=== PATIENT | male | born 1980 | race Caucasian/White ===

== ENCOUNTER 2017-04-07 21:07 | Emergency (ER) | payer BC ==
--- NOTE | 2017-04-07 21:21 | EDM.PDOC ---
ED HPI GENERAL MEDICAL PROBLEM - General Chief Complaint: Chest Pain Stated Complaint: CHEST PAIN Time Seen by Provider: 04/07/17 21:15 - History of Present Illness INITIAL COMMENTS - FREE TEXT/NARRATIVE: HISTORY AND PHYSICAL: History of present illness: Patient 36-year-old male presents with concerns chest pain 13 days his been seen as an outpatient with negative diagnostic. He denies associated shortness breath palpitations nausea vomiting or other complaints he has seen a chiropractor also pelvis. Review of systems: As per history of present illness and below otherwise all systems reviewed and negative. Past medical history: As per history of present illness and as reviewed below otherwise noncontributory. Surgical history: As per history of present illness and as reviewed below otherwise noncontributory. Social history: No reported history of drug or alcohol abuse. Family history: As per history of present illness and as reviewed below otherwise noncontributory. Physical exam: HEENT: Atraumatic, normocephalic, pupils reactive, negative for conjunctival pallor or scleral icterus, mucous membranes moist, throat clear, neck supple, nontender, trachea midline. Lungs: Clear to auscultation, breath sounds equal bilaterally, chest nontender. Heart: S1S2, regular, negative for clicks, rubs, or JVD. Abdomen: Soft, nondistended, nontender. Negative for masses or hepatosplenomegaly. Negative for costovertebral tenderness. Pelvis: Stable nontender. Genitourinary: Deferred. Rectal: Deferred. Extremities: Atraumatic, negative for cords or calf pain. Neurovascular unremarkable. Neuro: Awake, alert, oriented. Cranial nerves II through XII unremarkable. Cerebellum unremarkable. Motor and sensory unremarkable throughout. Exam nonfocal. Diagnostics: EKG chest x-ray CBC CMP PT/INR troponin Therapeutics: None Impression: 1 atypical chest pain Definitive disposition and diagnosis as appropriate pending reevaluation and review of above. chest pain Pain Score (Numeric/FACES): 6 - Related Data Allergies Allergy/AdvReac Type Severity Reaction Status Date / Time No Known Allergies Allergy Verified 04/07/17 21:12 Home Meds: Home Meds . [No Known Home Meds] 04/07/17 [History] ED ROS GENERAL - Review of Systems Review Of Systems: ROS reveals no pertinent complaints other than HPI. ED EXAM, GENERAL - Physical Exam Exam: See Below (See dictation) Course - Vital Signs Last Recorded V/S: Last Vital Signs Temp 36.5 C 04/07/17 21:12 Pulse 72 04/07/17 21:12 Resp 18 04/07/17 21:12 BP 125/86 04/07/17 21:12 Pulse Ox 98 04/07/17 21:12 - Orders/Labs/Meds Orders: Active Orders 24 hr Category Date Time Status EKG Documentation Completion [RC] STAT Care 04/07/17 21:12 Active Chest 1V Frontal [CR] Stat Exams 04/07/17 21:12 Ordered CBC WITH AUTO DIFF [HEME] Stat Lab 04/07/17 21:12 Ordered COMPREHENSIVE METABOLIC PN,CMP [CHEM] Stat Lab 04/07/17 21:12 Ordered INR,PT,PROTHROMBIN TIME [COAG] Stat Lab 04/07/17 21:12 Ordered TROPONIN I [CHEM] Stat Lab 04/07/17 21:12 Ordered UA W/MICROSCOPIC [URIN] Stat Lab 04/07/17 21:12 Ordered Departure - Departure Time of Disposition: 21:21 Disposition: Home, Self-Care 01 Condition: Good Clinical Impression: Atypical chest pain - Discharge Information Referrals: PCP,None [Primary Care Provider] - Additional Instructions: The following information is given to patients seen in the emergency department who are being discharged to home. This information is to outline your options for follow-up care. We provide all patients seen in our emergency department with a follow-up referral. The need for follow-up, as well as the timing and circumstances, are variable depending upon the specifics of your emergency department visit. If you don't have a primary care physician on staff, we will provide you with a referral. We always advise you to contact your personal physician following an emergency department visit to inform them of the circumstance of the visit and for follow-up with them and/or the need for any referrals to a consulting specialist. The emergency department will also refer you to a specialist when appropriate. This referral assures that you have the opportunity for followup care with a specialist. All of these measure are taken in an effort to provide you with optimal care, which includes your followup. Under all circumstances we always encourage you to contact your private physician who remains a resource for coordinating your care. When calling for followup care, please make the office aware that this follow-up is from your recent emergency room visit. If for any reason you are refused follow-up, please contact the [facility] emergency department at and asked to speak to the emergency department charge nurse. [facility] [address] [place] [id number] Follow-up primary medical doctor and/or primary care clinic above call to schedule routine appointment return as needed as discussed - My Orders Last 24 Hours: My Active Orders 04/07/17 21:12 EKG Documentation Completion [RC] STAT Chest 1V Frontal [CR] Stat CBC WITH AUTO DIFF [HEME] Stat COMPREHENSIVE METABOLIC PN,CMP [CHEM] Stat INR,PT,PROTHROMBIN TIME [COAG] Stat TROPONIN I [CHEM] Stat UA W/MICROSCOPIC [URIN] Stat - Assessment/Plan Last 24 Hours: My Active Orders 04/07/17 21:12 EKG Documentation Completion [RC] STAT Chest 1V Frontal [CR] Stat CBC WITH AUTO DIFF [HEME] Stat COMPREHENSIVE METABOLIC PN,CMP [CHEM] Stat INR,PT,PROTHROMBIN TIME [COAG] Stat TROPONIN I [CHEM] Stat UA W/MICROSCOPIC [URIN] Stat
[2017-04-07 21:53] LABS: CHLORIDE,CL 103 mmol/L (98-107); SODIUM,NA 138 mmol/L (136-148)
--- NOTE | 2017-04-08 11:10 | CR ---
EXAM DATE: 04/07/17 PATIENT'S AGE: 36 Patient: FERNANDO BRANCH Facility: [place], [place] Site . Site : [id number] Study: XRay Chest [id number] 9:40:49 PM Ordering Physician: Doctor Wick Final Report: Indication: Chest pain Technique: Chest 1 view Comparison: None Findings/Impression: Cardiovascular and mediastinum: Heart size and vasculature are normal in caliber and appearance. Mediastinum is within normal limits. Lungs and pleural space: There are some scattered punctate calcified granulomata. Lungs are otherwise clear. No sign of pleural effusion. No pneumothorax. Bones and soft tissues: No significant findings. Dictated by Natalee Lewis MD @ Apr 07 2017 9:43PM (Electronic Signature) Report Signed by Proxy. [facility]
== END 2017-04-07 22:36 | disposition home or self-care (01) ==
LOC: MW.ED 21:07
DX: R07.89 Other chest pain (principal)
CPT/HCPCS: 36415; 71045; 71045-26; 80053; 81001; 84484; 85025; 85610; 93005; 99283; 99285-25